=== PATIENT | male | born 1965 | race Caucasian/White ===

== ENCOUNTER 2021-07-05 20:29 | Emergency (ER) | payer MEDICAID ==
[~2021-07-05] VITALS: Ht 177.8 cm; Wt 80.9 kg
[2021-07-05 20:31] VITALS: BP 137/84
[2021-07-05] MEDS ORDERED: DIPH,PERTUSS(ACELL),TET VAC/PF 0.5 ML IM-VACC ONE ×2 (21:50→22:00)
[2021-07-05] MEDS ORDERED: LIDOCAINE-MPF 1%, 5ML ONE (21:50)
[2021-07-05] MEDS ORDERED: LIDOCAINE 1%-EPI 1:100K, 20ML SQ ONE (22:00)
[2021-07-05] MEDS ORDERED: LIDOCAINE 1%-EPI 1:100K, 20ML ONE ×2 (22:12→22:37)
[2021-07-05] MEDS ORDERED: BACITRACIN ZINC OINT 500U/GM, 0.9 GM ONE (22:59)
[2021-07-05] MEDS ORDERED: HYDROcodone/APAP 5/325 TABLET PO ONE (23:00)
[2021-07-05] MEDS ORDERED: HYDROcodone/APAP 5/325 TABLET ONE (23:07)
== END 2021-07-05 23:15 | disposition home or self-care (01) ==
LOC: EDSEX → ED 23:05
DX: L03.113 Cellulitis of right upper limb (principal); L03.114 Cellulitis of left upper limb; L02.413 Cutaneous abscess of right upper limb; L02.414 Cutaneous abscess of left upper limb; Z72.9 Problem related to lifestyle, unspecified; F17.210 Nicotine dependence, cigarettes, uncomplicated; R00.0 Tachycardia, unspecified
CPT/HCPCS: 10061; 90471; 90715; 99284; 99406

== ENCOUNTER 2021-07-08 14:03 | Emergency (ER) | payer MEDICAID ==
[~2021-07-08] VITALS: Ht 177.8 cm; Wt 80.3 kg
--- NOTE | 2021-07-08 15:39 | NUR ---
PT REC'VD DISCHARGE INSTRUCTIONS AND EDUCATION. PT HAD NO FURTHER QUESTIONS. PT AMBULATED TO DC AREA, STEAY GAIT.
[2021-07-08 15:40] VITALS: BP 152/89
== END 2021-07-08 15:42 | disposition home or self-care (01) ==
LOC: EDSEX 14:37 → ED 14:37
DX: Z48.01 Encounter for change or removal of surgical wound dressing (principal)
CPT/HCPCS: 99282